=== PATIENT | female | born 1940 | race Caucasian/White ===

== ENCOUNTER 2016-07-05 11:46 | Outpatient (CLI) | payer MEDICARE | END 2016-07-05 11:47 | disposition home or self-care (01) | DX: M19.012 Primary osteoarthritis, left shoulder (principal) ==

== ENCOUNTER 2016-09-26 10:59 | Outpatient (CLI) | payer MEDICARE ==
[2016-09-26 18:19] LABS: BASOPHILS % (AUTO) 0.7 %; EOSINOPHILS # (AUTO) 0.3 10^3/uL (0.0-0.7); EOSINOPHILS % (AUTO) 4.5 %; HCT - HEMATOCRIT 35.5 % (37.0-47.0); HGB - HEMOGLOBIN 12.4 g/dL (12.0-16.0); LYMPHOCYTES # (AUTO) 2.7 10^3/uL (1.5-3.5); LYMPHOCYTES % (AUTO) 43.4 %; MEAN CORPUSCULAR HEMOGLOBIN 32.4 pg (27.0-31.0); MEAN CORPUSCULAR VOLUME 92.5 fL (81.0-99.0); MEAN PLATELET VOLUME 7.9 fL (7.9-10.8); MONOCYTES # (AUTO) 0.4 10^3/uL (0.0-1.0); MONOCYTES % (AUTO) 6.1 %; NEUTROPHILS # (AUTO) 2.8 10^3/uL (1.5-6.6); NEUTROPHILS % (AUTO) 45.3 %; RED BLOOD COUNT 3.84 10^6/uL (4.20-5.40); RED CELL DISTRIBUTION WIDTH 13.6 % (12.0-15.0); UNCORRECTED WHITE BLOOD COUNT 6.1 x10^3/uL; WHITE BLOOD COUNT 6.1 x10^3/uL (4.8-10.8)
[2016-09-26 18:44] LABS: IRON 140 ug/dL (28-170); TOTAL IRON BINDING CAPACITY 333 ug/dL (250-450); TRANSFERRIN 238 mg/dL (192-382)
[2016-09-26 18:48] LABS: FERRITIN 31.5 ng/mL (11.0-306.8)
== END 2016-09-26 11:00 | disposition home or self-care (01) ==
LOC: LAB.F 10:59
PROVIDERS: ATTEND Family Medicine
DX: D50.9 Iron deficiency anemia, unspecified (principal)
CPT/HCPCS: 36415; 82607; 82728; 83540; 84466; 85025

== ENCOUNTER 2016-12-25 12:06 | Outpatient (CLI) | payer MEDICARE ==
--- NOTE | 2016-12-26 17:30 | Mammography Report ---
DIGITAL SCREENING MAMMOGRAM: 12/25/2016 CLINICAL INDICATION: A 76-year-old for screening. COMPARISON: 10/2015, 05/2014, 04/2013, 04/2012, 04/2011, 03/2011, 03/2010. TECHNIQUE: Routine CC and MLO projections were obtained of the breasts. FINDINGS: The breasts again demonstrate heterogeneously dense fibroglandular parenchyma bilaterally. Coarse, typically benign calcifications are present. Circumscribed nodule in the right breast is s table. No suspicious masses, clustered microcalcifications, or regions of architectural distortion a re identified. IMPRESSION: BENIGN FINDINGS. RECOMMENDATION: Routine annual screening unless otherwise clinically indicated. BI-RADS category 2, benign findings. STANDARD QUALIFYING STATEMENTS 1. This examination was reviewed with the aid of Computer-Aided Detection (CAD). 2. A negative or benign imaging report should not delay biopsy if clinically suspicious findings are present. Consider surgical consultation if warranted. More than 5% of cancers are not identified by i maging. 3. Dense breasts may obscure an underlying neoplasm. JOB #: [id number] EXT JOB #:[id number]
== END 2016-12-25 12:07 | disposition home or self-care (01) ==
LOC: DI.S 12:06
PROVIDERS: ATTEND Internal Medicine
DX: Z12.39 Encounter for other screening for malignant neoplasm of breast (principal)
CPT/HCPCS: 77067

== ENCOUNTER 2017-02-26 11:14 | Outpatient (CLI) | payer MEDICARE | END 2017-02-26 11:15 | disposition home or self-care (01) | LOC: DI 11:14 | PROVIDERS: ATTEND Internal Medicine | DX: R01.1 Cardiac murmur, unspecified (principal) | CPT/HCPCS: 93306 ==

== ENCOUNTER 2017-06-28 10:48 | Outpatient (CLI) | payer MEDICARE ==
--- NOTE | 2017-06-28 17:23 | XRAY Report ---
TWO VIEW RIGHT FOOT: 06/28/2017 CLINICAL INDICATION: Pain. FINDINGS: AP, lateral views of the right foot demonstrate postoperative changes in the proximal phalanx of the great toe, with a cerclage wire in place. 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 No gross fracture is seen on these 2 views. IMPRESSION: DEGENERATIVE CHANGES, WITH MODERATE HALLUX VALGUS. TD: 06/28/2017 17:22
== END 2017-06-28 10:49 | disposition home or self-care (01) ==
LOC: DI.S 10:48
PROVIDERS: ATTEND Physician Assistant Medical
DX: M19.071 Primary osteoarthritis, right ankle and foot (principal); M20.11 Hallux valgus (acquired), right foot

== ENCOUNTER 2017-09-18 09:25 | Outpatient (CLI) | payer MEDICARE ==
[2017-09-18 17:32] LABS: BASOPHILS # (AUTO) 0.1 10^3/uL (0.0-0.1); EOSINOPHILS # (AUTO) 0.3 10^3/uL (0.0-0.7); EOSINOPHILS % (AUTO) 4.7 %; HGB - HEMOGLOBIN 11.7 g/dL (12.0-16.0); LYMPHOCYTES # (AUTO) 1.5 10^3/uL (1.5-3.5); LYMPHOCYTES % (AUTO) 27.5 %; MEAN CORPUSCULAR HGB CONC 32.9 g/dL (32.0-36.0); MEAN CORPUSCULAR VOLUME 94.1 fL (81.0-99.0); MEAN PLATELET VOLUME 7.3 fL (7.9-10.8); MONOCYTES # (AUTO) 0.4 10^3/uL (0.0-1.0); MONOCYTES % (AUTO) 6.6 %; NEUTROPHILS # (AUTO) 3.3 10^3/uL (1.5-6.6); NEUTROPHILS % (AUTO) 60.2 %; PLT - PLATELET COUNT 309 10^3/uL (130-450); RED BLOOD COUNT 3.77 10^6/uL (4.20-5.40); RED CELL DISTRIBUTION WIDTH 15.1 % (12.0-15.0); WHITE BLOOD COUNT 5.5 x10^3/uL (4.8-10.8)
[2017-09-18 17:40] LABS: ALBUMIN 4.1 g/dL (3.2-5.5); ALBUMIN/GLOBULIN RATIO 1.2 (1.0-2.2); ALKALINE PHOSPHATASE 74 IU/L (42-121); ALT ALANINE AMINOTRANSFERASE 19 IU/L (10-60); AST ASPARTATE AMINOTRANSFERASE 28 IU/L (10-42); BILIRUBIN,TOTAL 0.9 mg/dL (0.2-1.0); BUN - BLOOD UREA NITROGEN 19 mg/dL (6-20); CARBON DIOXIDE - CO2 27 mmol/L (21-32); CHLORIDE 99 mmol/L (101-111); CHOL/HDL RATIO 2.7 (<4.4); CHOLESTEROL 178 mg/dL; CREATININE 0.8 mg/dL (0.4-1.0); GFR - MDRD 69 (>89); GLUCOSE 86 mg/dL (70-100); HDL CHOLESTEROL 67 mg/dL; LDL CHOLESTEROL,CALCULATED 97 mg/dL; LDL/HDL RATIO 1.4 (<4.4); SODIUM 134 mmol/L (135-145); TOTAL PROTEIN 7.4 g/dL (6.7-8.2); VLDL CHOLESTEROL 14 mg/dL
== END 2017-09-18 09:26 | disposition home or self-care (01) ==
LOC: LAB.F 09:25
PROVIDERS: ATTEND Physician Assistant Medical
DX: I10 Essential (primary) hypertension (principal); E78.5 Hyperlipidemia, unspecified; E55.9 Vitamin D deficiency, unspecified
CPT/HCPCS: 36415; 80053; 80061; 82306; 83721; 85025

== ENCOUNTER 2017-10-08 08:00 | Outpatient (CLI) | payer MEDICARE ==
[2017-10-08 19:00] LABS: FERRITIN 42.7 ng/mL (11.0-306.8)
== END 2017-10-08 08:01 | disposition home or self-care (01) ==
LOC: LAB.F 08:00
PROVIDERS: ATTEND Physician Assistant Medical
DX: D64.9 Anemia, unspecified (principal)
CPT/HCPCS: 36415; 82607; 82728

== ENCOUNTER 2018-08-15 09:01 | Day surgery (SDC) | payer MEDICARE ==
[~2018-08-15 09:01] MED LIST: BRIMONIDINE 0.2% OPHTH DROPS 5 ML ONE; BSS/LIDOCAINE/EPINEPHRINE 1 ML SYRINGE ONE; CYCLOPENTOLATE 1% OPHTH DROPS 2 ML ONE; KETOROLAC 0.45% OPHTH DROPS ONE; PHENYLEPHRINE 2.5% OPHTH 2 ML DROPS ONE; PROPARACAINE 0.5% OPHTH DROPS 15 ML ONE; TIMOLOL 0.5% OPHTH DROPS ONE; TRIAMCIN/MOXIFLOX OPHTHALMIC 0.6 ML VIAL IO ONE; VANCOMYCIN OPHTHALMI 8MG/0.8ML 8 MG/0.8 ML SYRINGE IO ONE
[2018-08-15] MEDS ORDERED: CYCLOPENTOLATE 1% OPHTH DROPS 2 ML RIGHTEYE ONE (09:55)
[2018-08-15] MEDS ORDERED: PHENYLEPHRINE 2.5% OPHTH 2 ML DROPS RIGHTEYE ONE (09:55)
[2018-08-15] MEDS ORDERED: PROPARACAINE 0.5% OPHTH DROPS 15 ML RIGHTEYE ONE ×2 (09:55→10:26)
[2018-08-15] MEDS ORDERED: KETOROLAC 0.45% OPHTH DROPS RIGHTEYE ONE (09:55)
[2018-08-15] MEDS ORDERED: LACTATED RINGERS 500 ML IV ONE (10:12)
--- NOTE | 2018-08-15 10:16 | ANESTHESIA ---
Pre-Anesthesia VS, & Labs - Diagnosis Right eye senile combined cataract - Procedure right eye cataract extraction with IOL implant Vital Signs: Temp Pulse Resp BP Pulse Ox 37.3 C 52 L 16 158/73 H 98 08/15/18 09:45 08/15/18 09:45 08/15/18 09:45 08/15/18 09:45 08/15/18 09:45 Height 5 ft 4 in Weight (kg) 75.4 kg Body Mass Index 31.1 - NPO >8 hours - Is Patient ?: No Home Medications and Allergies Acetaminophen [Tylenol] 650 mg pe PO BID 05/21/14 C,E,Zinc,Copper 24/Om3/Lut/Gardenia [Ocuvite Softgel] 1 each PO DAILY 05/21/14 Calcium Carbonate [Calcium] 500 mg PO DAILY 05/21/14 Losartan [Cozaar] 50 mg PO DAILY 05/21/14 Multivitamin [Multi-Vitamin Daily] 1 cap PO DAILY 05/21/14 Cambridge-3 Fatty Acids [Cambridge-3] 1,000 mg PO DAILY 05/21/14 Pravastatin Sodium 20 mg PO Q24HR@2100 05/21/14 Sertraline [Zoloft] 25 mg PO DAILY 05/21/14 Triamcinolone Acetonide [Nasacort] 1 inh IH DAILY 05/21/14 Vit D3-Vit K/Berberine/Hops [Ostera Tablet] 1,000 cap PO DAILY 05/21/14 amLODIPine [Norvasc] 10 mg PO DAILY 05/21/14 Allergies/Adverse Reactions: Allergies Allergy/AdvReac Type Severity Reaction Status Date / Time shrimp Allergy Edema Verified 08/15/18 10:00 lisinopril AdvReac Unknown Verified 08/15/18 10:00 Anes History & Medical History - Anesthetic History Anesthesia Complications: reports: No previous complications - Medical History Cardiovascular: reports: Hypertension, High cholesterol Pulmonary: reports: None Gastrointestinal: reports: None, Diverticulitis Urinary: reports: None Neuro: reports: None Musculoskeletal: reports: None Endocrine/Autoimmune: reports: None Blood Disorders: reports: None Skin: reports: None Smoking Status: Never smoker Psychosocial: reports: Depression, Alcohol (1 glass several times per week) - Surgical History General: Colonoscopy, Other (colon resection) Gynecologic: section, Hysterectomy Orthopedic: Knee replacement Exam General: Alert, Oriented x3, Cooperative, No acute distress Dental: Partials Lower Mouth Openin Fingerbreadth Neck Mobility: Normal Mallampati classification: II Thyromental Distance: 4-6 cm Respiratory: Lungs clear, Normal breath sounds, No respiratory distress, No accessory muscle use Cardiovascular: Regular rate (occassional skipped beat (history of PVCs)), Normal S1, Normal S2, No murmurs Mental/Cognitive Status: Alert/Oriented X3, Normal for patient Plan Anesthesia Type: MAC Consent for Procedure(s) Verified and Reviewed: Yes Code Status: Attempt Resuscitation ASA classification: 2-Mild systemic disease Is this case an emergency?: No
[2018-08-15] MEDS ORDERED: BRIMONIDINE 0.2% OPHTH DROPS 5 ML OPTH ONE (10:24)
[2018-08-15] MEDS ORDERED: EPINEPHrine 1 MG/ML AMP IVP ONE (10:25)
[2018-08-15] MEDS ORDERED: CHONDR SULF/HYALURONATE SYRINGE IO ONE (10:25)
[2018-08-15] MEDS ORDERED: TIMOLOL 0.5% OPHTH DROPS OPTH ONE (10:25)
[2018-08-15] MEDS ORDERED: BSS/LIDOCAINE/EPINEPHRINE 1 ML SYRINGE IO ONE (10:26)
[2018-08-15] MEDS ORDERED: TRIAMCIN/MOXIFLOX OPHTHALMIC 0.6 ML VIAL IO ONE (10:28)
[2018-08-15] MEDS ORDERED: VANCOMYCIN OPHTHALMI 8MG/0.8ML 8 MG/0.8 ML SYRINGE IO ONE (10:28)
[2018-08-15] MEDS ORDERED: MIDAZOLAM 2 MG/2 ML VIAL IVP ONE (11:00)
[2018-08-15 11:32] VITALS: BP 146/61
--- NOTE | 2018-08-15 12:04 | OPERATIVE REPORT ---
DATE OF SERVICE: 08/15/2018 Physician: Migue Flores MD PREOPERATIVE DIAGNOSIS: Visually significant cataract, right eye. Cataract surgery was performed on the left eye on 05/21/2014. POSTOPERATIVE DIAGNOSIS: Visually significant cataract, right eye. Cataract surgery was performed o n the left eye on 05/21/2014. PROCEDURE: Phacoemulsification with posterior chamber intraocular lens implant, right eye. SURGEON: Migue Flores MD ANESTHESIA: Monitored anesthesia care. COMPLICATIONS: None. 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 Best corrected visual acuity was 20/30, with glare to 20/60 in the right eye. Indications for surgery are overall decrease in vision, difficulty seeing wo rds on a computer screen, difficulty reading, difficulty driving at night because of headlights from other vehicles. She was consented at length concerning risks and benefits of cataract surgery, after which she expressed her desire to proceed with surgery. OPERATIVE PROCEDURE: The patient was taken to OR #3 and placed under monitored anesthesia care. A s urgical timeout was conducted confirming correct patient, correct procedure, and correct surgical sit e. She was given topical anesthesia, and then prepped and draped in the usual sterile fashion. The eye was entered at the 12 and 9 o'clock positions. Intracameral Shugarcaine was injected into the an terior chamber, followed by Viscoat. A continuous-tear curvilinear capsulorrhexis was performed. Th e nucleus was hydrodissected and phacoemulsified. The cortex was evacuated using automated infusion and aspiration. Provisc was injected in the capsular bag, and a 22.0 diopter intraocular lens insert ed in the bag. Approximately 0.8 mL of a mixture of triamcinolone, moxifloxacin and vancomycin was i njected subconjunctivally in the superior quadrant for infection and inflammation prophylaxis. I and A was used to evacuate the viscoelastic materials. The eye was inflated to physiologic pressure us ing balanced salt solution and found to be watertight. Patient was taken from the operating room in good condition and given postoperative instructions. TD: 08/15/2018 11:35
== END 2018-08-15 09:02 | disposition home or self-care (01) ==
LOC: SDS 09:01
PROVIDERS: ATTEND Ophthalmology
PROC: 08RJ3JZ Replacement of Right Lens with Synthetic Substitute, Percutaneous Approach (ICD-10-PCS; principal; 2018-08-15 10:30)
DX: H25.811 Combined forms of age-related cataract, right eye (principal); I10 Essential (primary) hypertension; E78.00 Pure hypercholesterolemia, unspecified
CPT/HCPCS: 66984; A9270; V2632

== ENCOUNTER 2018-10-18 12:45 | Outpatient (CLI) | payer MEDICARE ==
--- NOTE | 2018-10-18 15:52 | Mammography Report ---
Reason: LT BREAST LUMP Procedure Date: 10/18/2018 Accession Number: [id number] / [id number] Procedure: SHANTELL - Diagnostic Dig Bilat CPT Code: FULL RESULT: EXAM: Diagnostic Dig Bilat DATE: 10/18/2018 1:39 PM CLINICAL HISTORY: Diagnostic examination. Palpable left breast lump. TECHNIQUE: (B) - Bilateral CC and MLO views were obtained. Focused left breast ultrasound is performed. COMPARISON: 12/25/2016 through 05/27/2013. PARENCHYMAL PATTERN: (A) - The breast(s) demonstrate(s) scattered fibroglandular densities. FINDINGS: Corresponding to the palpable marker placed on the left breast is increasing architectural distortion and focal asymmetry in the left retroareolar region. Focused left breast ultrasound demonstrates an ill-defined hypoechoic 2.2 cm wide 1.4 cm tall area of shadowing with increased echogenicity of the parenchymal fat which is separate from the normal hypoechoic retroareolar region. This corresponds to the hard palpable area and is suspicious. Ultrasound-guided biopsy is recommended. There are no suspicious masses, calcifications, or areas of distortion in the right breast. IMPRESSION: Suspicious findings. BI-RADS category 4. RECOMMENDATION: (BIOPSY) - ultrasound-guided left breast. BI-RADS CATEGORY: (4) - Suspicious. STANDARD QUALIFYING STATEMENTS: 1. This examination was not reviewed with the aid of Computer-Aided Detection (CAD). 2. A negative or benign imaging report should not preclude biopsy if clinically suspicious findings are present. 3. Dense breasts may obscure an underlying neoplasm. 4. This examination was reviewed with the aid of 3D breast imaging (tomosynthesis).
== END 2018-10-18 12:46 | disposition home or self-care (01) ==
LOC: DI 12:45
PROVIDERS: ATTEND Physician Assistant Medical
DX: N63.20 Unspecified lump in the left breast, unspecified quadrant (principal)
CPT/HCPCS: 76642; 77066; G0279; 77062

== ENCOUNTER 2018-12-06 12:47 | Outpatient (CLI) | payer MEDICARE ==
[2018-12-06 13:07] LABS: CREATININE 0.7 mg/dL (0.4-1.0)
== END 2018-12-06 12:48 | disposition home or self-care (01) ==
LOC: LAB 12:47
PROVIDERS: ATTEND Nurse Practitioner Adult Health
DX: C50.912 Malignant neoplasm of unspecified site of left female breast (principal); Z17.0 Estrogen receptor positive status [ER+]
CPT/HCPCS: 36415; 82565